=== PATIENT | female | born 1955 | race Two or more races ===

== ENCOUNTER 2017-08-13 13:16 | Inpatient (IN) | payer OTHER ==
[~2017-08-13] VITALS: Ht 157.5 cm; Wt 94.8 kg
[2017-08-13] MEDS ORDERED: Aspirin Baby 81mg ORAL ONE (13:45)
[2017-08-13 13:54] VITALS: BP 157/65
--- NOTE | 2017-08-13 13:59 | Emergency Room Report ---
History of Present Illness General Chief Complaint: Chest Pain Present Illness HPI Patient is a 62-year-old female who presented after increased chest discomfort. Patient was noted to have the chest tightness which began approximately 9:00 this morning. Patient been having intermittent symptoms for several weeks. The patient reports having the worsened pain and tightness since approximately noon when it became constant. The patient is a smoker as well as diabetic with prior history of hypertension. Allergies: Coded Allergies: No Known Allergies (Unverified , 08/13/17) Patient History Past Medical History: see triage record Last Menstrual Period: 2009 Reviewed Nursing Documentation: PMH: Agreed; PSxH: Agreed Review of Systems All Other Systems: negative except mentioned in HPI Physical Exam Vital Signs Date Time Temp Pulse Resp B/P (MAP) Pulse Ox O2 Delivery O2 Flow Rate FiO2 08/13/17 13:23 98.0 86 18 142/78 97 Room Air 98.1 Sp02 EP Interpretation: reviewed, normal General Appearance: normal inspection, well appearing, no apparent distress, alert, GCS 15 Head: atraumatic ENT: normal ENT inspection, hearing grossly normal, normal voice Neck: normal inspection, full range of motion, supple, no bony tend Respiratory: normal inspection, lungs clear, normal breath sounds, no respiratory distress, no retraction, no wheezing Cardiovascular #1: regular rate, rhythm, no edema Gastrointestinal: normal inspection, normal bowel sounds, non tender, soft, no guarding, no hernia Genitourinary: no CVA tenderness Musculoskeletal: normal inspection, back normal, normal range of motion Neurologic: normal inspection, alert, oriented x3, responsive, parachute line tier III-XII nml as tested, speech normal Psychiatric: normal inspection, judgement/insight normal, mood/affect normal Skin: normal inspection, normal color, no rash Medical Decision Making Diagnostic Impression: Primary Impression: ACS (acute coronary syndrome) ER Course patient presented for chest pain.Differential diagnosis included but was not limited to acute coronary syndrome, pulmonary embolism, pneumonia, aortic dissection, shingles, pneumothorax, aortic dissection, esophageal rupture, pericarditis. Because of complexity of patient's case laboratory testing and imaging studies were ordered.The patient is given aspirin and was he patient noted to be pain free after nitroglycerin. endorsed to Dr. Kauffman Labs Test 08/13/17 13:45 White Blood Count 14.3 K/UL (4.8-10.8) Red Blood Count 5.24 M/UL (4.20-5.40) Hemoglobin 15.7 G/DL (12.0-16.0) Hematocrit 47.8 % (37.0-47.0) Mean Corpuscular Volume 91 FL (80-99) Mean Corpuscular Hemoglobin 30.0 PG (27.0-31.0) Mean Corpuscular Hemoglobin Concent 32.9 G/DL (32.0-36.0) Red Cell Distribution Width 11.5 % (11.6-14.8) Platelet Count 246 K/UL (150-450) Mean Platelet Volume 9.7 FL (6.5-10.1) Neutrophils (%) (Auto) 47.0 % (45.0-75.0) Lymphocytes (%) (Auto) 39.7 % (20.0-45.0) Monocytes (%) (Auto) 3.7 % (1.0-10.0) Eosinophils (%) (Auto) 8.3 % (0.0-3.0) Basophils (%) (Auto) 1.2 % (0.0-2.0) Activated Partial Thromboplast Time 25 SEC (23-33) Sodium Level 139 MMOL/L (136-145) Potassium Level 3.5 MMOL/L (3.5-5.1) Chloride Level 102 MMOL/L (98-107) Carbon Dioxide Level 27 MMOL/L (21-32) Anion Gap 10 mmol/L (5-15) Blood Urea Nitrogen 17 mg/dL (7-18) Creatinine 1.0 MG/DL (0.55-1.30) Estimat Glomerular Filtration Rate 56.2 mL/min (>60) Glucose Level 178 MG/DL (74-106) Calcium Level 9.0 MG/DL (8.5-10.1) Total Bilirubin 0.3 MG/DL (0.2-1.0) Aspartate Amino Transf (AST/SGOT) 15 U/L (15-37) Alanine Aminotransferase (ALT/SGPT) 31 U/L (12-78) Alkaline Phosphatase 66 U/L (46-116) Total Creatine Kinase 102 U/L (26-308) Creatine Kinase MB 0.6 NG/ML (0.0-3.6) Creatine Kinase MB Relative Index 0.5 Troponin I 0.000 ng/mL (0.000-0.056) Total Protein 8.1 G/DL (6.4-8.2) Albumin 3.9 G/DL (3.4-5.0) Globulin 4.2 g/dL Albumin/Globulin Ratio 0.9 (1.0-2.7) Last Vital Signs Date Time Temp Pulse Resp B/P (MAP) Pulse Ox O2 Delivery O2 Flow Rate FiO2 08/13/17 13:54 81 18 Room Air 08/13/17 13:23 98.0 142/78 97 98.1 Status: improved Disposition: ADMITTED INPATIENT Condition: Serious Scripts Unable to Obtain Active Prescriptions or Reported Meds Adria Bustamante MD Aug 13, 2017 13:59
[2017-08-13] MEDS ORDERED: Heparin 25,000u/D5W 500ml 500 ML IV SCH (14:00)
[2017-08-13] MEDS ORDERED: Nitroglycerin Subl 0.4mg tab SL PRN (14:00)
[2017-08-13] MEDS ORDERED: Heparin 5000 units/ml inj IV ONE (14:00)
--- NOTE | 2017-08-13 14:11 | Emergency Room Report ---
History of Present Illness General Chief Complaint: Chest Pain Source: Patient Present Illness HPI 62yo F with h/o DM, tobacco use p/w MS chest tightness radiating to R scapula x many days, usually lasts 20 mins, better with burping after drinking 7up. Today became more persistent, with 1 episode of nonbloody diarrhea, associated nausea, but no vomiting, no cough, no SOB, no syncope; she tried green tea with partial relief. Currently she still reports mild chest tightness and pressure sensation that she thinks may be gas pain. Allergies: Coded Allergies: No Known Allergies (Unverified , 08/13/17) Patient History Past Medical History: see triage record Last Menstrual Period: 2009 Reviewed Nursing Documentation: PMH: Agreed; PSxH: Agreed Nursing Documentation-PMH Hx Diabetes: Yes Hx Gastrointestinal Problems: Yes Review of Systems All Other Systems: negative except mentioned in HPI Physical Exam Vital Signs Date Time Temp Pulse Resp B/P (MAP) Pulse Ox O2 Delivery O2 Flow Rate FiO2 08/13/17 13:23 98.0 86 18 142/78 97 Room Air 98.1 Sp02 EP Interpretation: reviewed, normal General Appearance: alert, non-toxic, mild distress Head: normocephalic Eyes: bilateral eye normal inspection, bilateral eye PERRL, bilateral eye EOMI ENT: normal ENT inspection, hearing grossly normal, normal pharynx, no angioedema, normal voice, moist mucus membranes Neck: normal inspection, full range of motion, supple, thyroid normal, supple/ symm/no masses Respiratory: normal inspection, chest non-tender, lungs clear, normal breath sounds, no rhonchi, no respiratory distress, no retraction, no accessory muscle use, no wheezing, chest symmetrical, palpation of chest normal Cardiovascular #1: normal peripheral pulses, regular rate, rhythm, no gallop, no JVD, no murmur, no rub, edema - trace bilateral ankle edema Cardiovascular #2: 2+ radial (R), 2+ radial (L), 2+ dorsalis pedis (R), 2+ dorsalis pedis (L) Gastrointestinal: normal inspection, non tender, soft, no mass, no guarding, no rebound Rectal: deferred Genitourinary: normal inspection, no CVA tenderness Musculoskeletal: back normal, gait/station normal, normal range of motion, non- tender, no calf tenderness, Doroteo's Sign negative Neurologic: alert, responsive, unemployment insurance hearing officer III-XII nml as tested, motor strength/tone normal, sensory intact, speech normal Psychiatric: judgement/insight normal, memory normal, mood/affect normal, no suicidal/homicidal ideation Skin: normal color, no rash, warm/dry, normal turgor Lymphatic: no adenopathy Medical Decision Making Diagnostic Impression: Primary Impression: Chest pain ER Course Dr. Doan, at [facility] will take patient if trop is elevated, but they are on saturation; does not think the EKG's represent STEMI so unable to take emergently unless she decompensates or troponin elevation. Patient given ASA, NTG, heparin bolus. I do not suspect dissection, PE, PTX, tamponade, peptic ulcer. Patient understands and agrees to transfer to [facility] if necessary. patient has been stable here, no chest pain or anyone supplemental nitroglycerin. Troponin is negative as are CKs which were ordered by previous physician. Patient will be admitted, will stay on heparin drip and have inpatient evaluation here at [facility]. EKG Diagnostic Results EKG Time: 13:28 EP Interpretation: aurora 1mm in aVR, subtle j-point depressions in inferior and v4-v6 Rate: normal Rhythm: NSR ST Segments: other ASA given to the pt in ED: Yes Rhythm Strip Diag. Results Rhythm Strip Time: 14:10 EP Interpretation: yes Rate: 81 Rhythm: NSR, no PVC's, no ectopy Chest X-Ray Diagnostic Results Chest X-Ray Diagnostic Results : Chest X-Ray Ordered: Yes # of Views/Limited/Complete: 1 View Indication: Chest Pain EP Interpretation: Yes Interpretation: no consolidation, no effusion, no pneumothorax, no acute cardiopulmonary disease Impression: No acute disease Electronically Signed by: Rosalia Orozco MD Reevaluation Time: 14:32 Last Vital Signs Date Time Temp Pulse Resp B/P (MAP) Pulse Ox O2 Delivery O2 Flow Rate FiO2 08/13/17 13:54 81 18 Room Air 18 13:54 98.1 157/65 100 98.1 Status: improved Reevaluation Impression Patient rec'd asa and then 1 SL NTG, reports her pain resolved, and a repeat EKG done at 14:13 while pain free post-NTG reveals still slight ST depression at J-point in leads II and v6 with less prominent AURORA in aVR. Patient clinically stable currently, pending labs, cxr, and possible transfer. Disposition: ADMITTED INPATIENT Condition: Stable Scripts Unable to Obtain Active Prescriptions or Reported Meds ROSALIA OROZCO M.D Aug 13, 2017 14:11
[2017-08-13 14:19] LABS: BASOPHILS % (AUTO) 1.2 % (0.0-2.0); EOSINOPHILS % (AUTO) 8.3 % (0.0-3.0); HEMATOCRIT 47.8 % (37.0-47.0); HEMOGLOBIN 15.7 G/DL (12.0-16.0); LYMPHOCYTES % (AUTO) 39.7 % (20.0-45.0); MEAN CORPUSCULAR VOLUME 91 FL (80-99); MONOCYTES % (AUTO) 3.7 % (1.0-10.0); PLATELET COUNT 246 K/UL (150-450); RED BLOOD COUNT 5.24 M/UL (4.20-5.40); RED CELL DISTRIBUTION WIDTH 11.5 % (11.6-14.8); WHITE BLOOD COUNT 14.3 K/UL (4.8-10.8)
[2017-08-13 14:36] LABS: ANION GAP 10 mmol/L (5-15); BLOOD UREA NITROGEN 17 mg/dL (7-18); CARBON DIOXIDE 27 MMOL/L (21-32); CHLORIDE 102 MMOL/L (98-107); POTASSIUM 3.5 MMOL/L (3.5-5.1); SODIUM 139 MMOL/L (136-145)
[2017-08-13 14:57] LABS: ALANINE AMINOTRANSFERASE 31 U/L (12-78); ALBUMIN 3.9 G/DL (3.4-5.0); ALBUMIN/GLOBULIN RATIO 0.9 (1.0-2.7); ALKALINE PHOSPHATASE 66 U/L (46-116); ASPARTATE AMINO TRANSFERASE 15 U/L (15-37); BILIRUBIN,TOTAL 0.3 MG/DL (0.2-1.0); CKMB 0.6 NG/ML (0.0-3.6); CREATINE KINASE 102 U/L (26-308)
--- NOTE | 2017-08-13 14:59 | Diagnostic Imaging Report ---
Indication: Dyspnea Comparison: None A single view chest radiograph was obtained. Findings: No definite infiltrate or pulmonary vascular congestion identified. The heart is enlarged. The bones are osteopenic. Impression: No acute disease
[2017-08-13 16:10] VITALS: BP 121/55
[2017-08-13 16:48] LABS: APPEARANCE,URINE CLEAR; BILIRUBIN, URINE NEGATIVE (NEGATIVE); COLOR,URINE PALE YELLOW; GLUCOSE, URINE (UA) NEGATIVE (NEGATIVE); KETONES,URINE NEGATIVE (NEGATIVE); LEUKOCYTE ESTERASE ,URINE NEGATIVE (NEGATIVE); NITRITE,URINE NEGATIVE (NEGATIVE); PH,URINE 7 (4.5-8.0); PROTEIN,URINE NEGATIVE (NEGATIVE); UROBILINOGEN,URINE NORMAL MG/DL (0.0-1.0)
[2017-08-13 18:45] VITALS: BP 121/55
--- NOTE | 2017-08-14 11:14 | Discharge Summary ---
Discharge Summary Discharge Summary _ DATE OF ADMISSION: 08/13/2017 DATE OF DISCHARGE: 08/13/2017-patient signed AGAINST MEDICAL ADVICE, REASON FOR ADMISSION: 62 years old female with past medical history significant for smoking ,diabetes mellitus ,hypertension, presented with musculoskeletal chest tightness , radiating to right scapula, present for days, usually lasting for about 20 minutes. Chest discomfort better with burping after drinking 7-Up. Prior to presentation to emergency room , chest tightness became more persistent. Patient reported one episode of nonbloody diarrhea with associated nausea , but no vomiting, no cough, no shortness of breath, no syncope. She tried at home green tea with partial relief. She reported mild chest tightness and pressure sensation , thinking it may be gas pain. Upon evaluation in emergency room vital signs were stable pulse oximetry was stable on room air EKG revealed ST elevation 1 mm in aVR, subtle J-point depression in the inferior and V4 V6 leads as per emergency room doctor interpretation. Chest x-ray revealed no acute cardiopulmonary pathology. Troponin was negative. Emergency room doctor spoke with the doctor at [facility], who reported no beds, only able to accept the patient if troponin elevated or patient decompensates. EKG was discussed with Dr. Marin, who did not think that this EKG represent STEMI. WBC-14.3, stable electrolytes, renal parameters, hemoglobin and hematocrit. In emergency department, patient was given aspirin, nitroglycerin, heparin bolus and started on heparin drip. Chest tightness resolved. Repeated ECG still revealed slight ST depression at J-point in leads II and V6 with less prominent ST elevation in aVR. Patient was admitted to telemetry floor for further management with diagnosis of chest pain , rule out acute coronary syndrome HOSPITAL COURSE: Patient started on heparin drip in emergency department . Patient was transferred to telemetry floor . Patient shortly after arrival to the floor, decided to sign AGAINST MEDICAL ADVICE. The risks and consequences of signing AGAINST MEDICAL ADVICE were discussed with patient. Patient verbalized understanding, signed the form and left FINAL DIAGNOSES: Chest pain, rule out acute coronary syndrome I have been assigned to dictate discharge summary for this account. I was not involved in the patient's management. Kendra Paz NP Aug 14, 2017 11:14
--- NOTE | 2017-08-15 00:37 | Cardiology Report ---
APPROVED REPORT EKG Measurement Heart [id number] Normal sinus rhythm Normal ECG
== END 2017-08-13 22:00 | disposition left against medical advice (07) | DRG 203 ==
LOC: EMR 15:58 → 2E 16:02 → EDBEDREQ 16:32 → 2E 21:10
DX: R07.9 Chest pain, unspecified (principal); E11.9 Type 2 diabetes mellitus without complications; F17.200 Nicotine dependence, unspecified, uncomplicated; I10 Essential (primary) hypertension
CPT/HCPCS: 36415; 71045; 80053; 81003; 82550; 82553; 84484; 85025; 85730; 93005; 99285